=== PATIENT | male | born 1975 | race African-American/Black ===

== ENCOUNTER 2021-05-29 12:07 | Emergency (ER) | payer BC ==
[~2021-05-29] VITALS: Ht 182.9 cm; Wt 100.0 kg
[2021-05-29 12:59] VITALS: BP 122/79
[2021-05-29] MEDS ORDERED: IBUPROFEN 600MG TABLET PO ONE (13:00)
[2021-05-29] MEDS ORDERED: ACETAMINOPHEN 325MG TABLET PO ONE (13:00)
[2021-05-29] MEDS ORDERED: NAPR-1176 MT (13:40)
== END 2021-05-29 13:53 | disposition home or self-care (01) ==
LOC: ER 12:07
DX: M25.531 Pain in right wrist (principal)
CPT/HCPCS: 73110; 99283